=== PATIENT | female | born 1960 | race Caucasian/White ===

== ENCOUNTER 2016-09-12 15:55 | Emergency (ER) | payer OTHER ==
[2016-09-12 16:01] VITALS: BP 141/110; PULSE 106; RESP 16; TEMP 98.8; O2SAT 94
--- NOTE | 2016-09-12 16:09 | EDPHY ---
H & P Time Seen by Provider: 09/12/16 16:04 HPI/ROS: CHIEF COMPLAINT: Left knee injury HISTORY OF PRESENT ILLNESS: 56-year-old female complaining of acute left knee pain which occurred while she was skiing earlier today at [place]. She lives in [place]. She is unable to bear weight secondary to pain. I would be evacuated via skip tender. no head injury. She felt a "pop". PHYSICAL EXAM (Prior to examination, patient consented to physical exam, hands were washed and my usual and customary physical exam procedures followed) 1) GENERAL: Well-developed, well-nourished, alert and oriented. Appears to be in no acute distress. 2) HEAD: Normocephalic 3) HEENT: Pupils equal, round, reactive to light bilaterally. 4) LUNGS: Breathing comfortably. 5) MUSCULOSKELETAL: Exam of the left knee shows mild soft tissue swelling . Compartments are soft. Reproducible pain with range of motion. 6) SKIN: intact no ecchymosis 7) VASCULAR: DP,PT pulses and cap refill present and brisk distally DIFFERENTIAL DIAGNOSIS: in no particular order including but not limited to fracture, sprain, compartment syndrome, septic arthritis, DVT Xray of the left knee interpreted by myself: no definitive acute osseous abnormality Procedure: Crutches indications for crutch use discussed with patient. Patient fitted for crutches by ER staff. Observed ambulating with crutches. I think the patient has the capacity to safely use crutches. Usual and customary crutch walking precautions provided Procedure: Splint A knee immobilizer splint was applied by ER certified technician. After application of the splint I returned and re-examined the patient. The splint was adequately immobilizing the joint and distal to the splint the patient's circulation and sensation were intact. Patient shows no signs of compartment syndrome. Was given orthopedic precautions. MEDICAL DECISION MAKING Serial evaluations performed on patient. I discussed the limitations of x-ray in diagnosis of knee pain and injury. At this time I do not think that emergent MRI is currently indicated. However, I have recommended follow-up with Orthopedic surgery and provided this referral information. Informed the patient that outpatient MRI may be indicated. Doubt septic arthritis. Doubt compartment syndrome. Doubt DVT. Smoking Status: Current some day smoker Constitutional: Initial Vital Signs Temperature (C) 37.1 C 09/12/16 15:56 Heart Rate 106 H 09/12/16 15:56 Respiratory Rate 16 09/12/16 15:56 Blood Pressure 141/110 H 09/12/16 15:56 O2 Sat (%) 94 09/12/16 15:56 O2 Delivery Mode Room Air Home Medications: Medication Instructions Recorded Hydrocodone/APAP 5/325 [[place] 1 tab PO Q6 PRN #10 tab 09/12/16 5/325 (RX)] MDM/Departure - Depart Disposition: Home, Routine, Self-Care Clinical Impression: Left knee sprain Qualifiers: Encounter type: initial encounter Involved ligament of knee: unspecified ligament Qualified Code(s): S83.92XA - Sprain of unspecified site of left knee, initial encounter Condition: Good Instructions: Knee Sprain (ED) Additional Instructions: Return to the ER immediately if you experience discoloration, have worsening pain, numbness, tingling, or any other symptoms that concern you. If you received x-rays in the emergency department today, be advised, that ligamentous , tendon, muscular, and other non-bony injury cannot be fully ruled out. Try to keep your affected extremity elevated above the level of your chest, and keep cold packs on the affected area, for the next 48 hours. Prescriptions: Hydrocodone/APAP 5/325 [[place] 5/325 (RX)] 1 tab PO Q6 PRN #10 tab PRN Reason: Pain, Severe Referrals: Agapito Bernardo MD [Medical Doctor] - 1-2 days without fail (Dr. Agapito Bernardo is a Agency based orthopedic surgeon. You may see an orthopedic surgeon in [place].)
== END 2016-09-12 17:13 | disposition home or self-care (01) ==
DX: S83.92XA Sprain of unspecified site of left knee, initial encounter (principal); F17.200 Nicotine dependence, unspecified, uncomplicated; V00.328A Other snow-ski accident, initial encounter; Y99.8 Other external cause status; Y93.23 Activity, snow (alpine) (downhill) skiing, snowboarding, sledding, tobogganing and snow tubing
CPT/HCPCS: L1830